=== PATIENT | male | born 1970 | race Caucasian/White ===

== ENCOUNTER 2023-12-30 11:32 | Emergency (ER) | payer SELFPAY ==
[~2023-12-30 11:32] MED LIST: Iopamidol 370 76% 100 ML VIAL ONE
[2023-12-30 12:43] LABS: PTT 25.4 sec (22.0-33.0); Prothrombin Time 10.7 sec (9.5-12.1)
[2023-12-30 12:44] LABS: #Monocytes 0.4 10x3/uL (0.0-1.1); #Neutrophils 5.6 10x3/uL (1.5-8.4); %Basophils 0.5 % (0.0-2.0); %Eosinophils 0.5 % (0.0-6.0); %Lymphocytes 20.1 % (18.0-47.0); %Monocytes 5.4 % (0.0-10.0); %Neutrophils 73.2 % (40.0-75.0); Hematocrit 39.5 % (38.8-50.0); Hemoglobin 14.3 g/dL (13.5-17.5); Mean Corpuscular HGB CONC 36.2 g/dL (32.0-36.0); Mean Corpuscular Hemoglobin 33.1 pg (27.0-33.0); Mean Corpuscular Volume 91.4 fl (81.2-95.1); Mean Platelet Volume 9.6 fl (7.4-10.4); Platelet Count 188 10x3/uL (150-450); RBC Distribution Width 11.5 % (11.5-14.5); Red Blood Cell (RBC) Count 4.32 10x6/uL (4.32-5.72); White Blood Cell (WBC) Count 7.7 10x3/uL (3.5-10.5)
[2023-12-30 12:47] LABS: ALT (SGPT) 14 U/L (8-55); AST (SGOT) 13 U/L (5-34); Albumin 4.4 g/dL (3.5-5.0); Alkaline Phosphatase 52 U/L (40-110); Anion Gap 13 mmol/L (10-20); BUN (Urea Nitrogen) 7 mg/dL (8.4-25.7); Bilirubin, Total 1.1 mg/dL (0.2-1.2); Calc. Creatinine Clearance 0 mL/min (70-130); Calcium 9.2 mg/dL (7.8-10.44); Carbon Dioxide 24 mmol/L (22-29); Chloride 102 mmol/L (98-107); Estimated GFR 105; Globulin 2.5 g/dL (2.4-3.5); Glucose 102 mg/dL (70-105); Lipase 19 U/L (8-78); Potassium 4.3 mmol/L (3.5-5.1); Protein, Total 6.9 g/dL (6.0-8.3); Sodium 135 mmol/L (136-145)
[2023-12-30] MEDS ORDERED: Pantoprazole 40 MG VIAL ONE (12:51)
== END 2023-12-30 14:50 | disposition home or self-care (01) ==
LOC: CSHERS 11:32
DX: K92.2 Gastrointestinal hemorrhage, unspecified (principal); K76.89 Other specified diseases of liver; R53.83 Other fatigue
CPT/HCPCS: 36415; 71045; 74177; 80053; 82274; 83605; 83690; 84443; 85025; 85610; 85730; 86850; 86900; 86901; 93005; 94760; 96374; C9113; Q9967